=== PATIENT | male | born 1960 | race Caucasian/White ===

== ENCOUNTER 2020-01-18 06:45 | Day surgery (SDC) | payer MEDICAID ==
[~2020-01-18 06:45] MED LIST: Lidocaine 1% with EPINEPHrine 1:100,000 50 ML MDV ONE; Sodium Chloride 0.9% 10 ML ONE; Sodium Tetradecyl Sulfate 1% 20 MG/2 ML SDV ONE
[2020-01-18] MEDS ORDERED: Midazolam 1 MG/ML 2 ML SDV ONE ×2 (07:31→09:04)
[2020-01-18] MEDS ORDERED: Propofol 200 MG/20 ML SDV ONE ×3 (07:31→09:24)
[2020-01-18] MEDS ORDERED: fentaNYL 100 MCG/2 ML SDV ONE (07:31)
[2020-01-18] MEDS ORDERED: Sodium Chloride 0.9% 1,000 ML IV SCH (08:00)
[2020-01-18] MEDS: Lidocaine 1% w/EPINEPHrine 50 ML, Sodium Bicarbonate 5 MEQ in Sodium Chloride 0.9% 950 ML INJECT SCH ×2 (09:08→09:09)
[2020-01-18] MEDS ORDERED: Lidocaine 2% Jelly 30 ML Tube ONE (09:38)
--- NOTE | 2020-01-19 08:01 | OR ---
DATE OF PROCEDURE: SURGEON: Harvey Izaguirre MD PROCEDURES: 1. Radiofrequency ablation of left greater saphenous vein. 2. Radiofrequency ablation of right greater saphenous vein. 3. Sclerotherapy, left leg, multiple. 4. Sclerotherapy, right leg, multiple. 5. Compression wrap, left leg (03201). 6. Compression wrap, right leg (68308). COMPLICATIONS: None. BISQUE PLACER: None. ANESTHESIA: MAC/local. RISKS: Risks, benefits, alternatives, and limitations including, but not limited to infection, bleeding, DVT formation, chronic pain, chronic wounds, neuropathy, and other risks not listed here were explained to the patient, who wished to proceed. PROCEDURE IN DETAIL: The patient was placed in supine position. The left greater saphenous vein was identified first. This was accessed at the level of the ankle using a 21-gauge needle, then exchanged for a 35,000th wire, then exchanged for a 7-[place] sheath. The RFA probe was advanced to 3 cm from saphenofemoral junction. Tumescent fluid was injected in 1 cm jacket around this and verified a second and third time. Direct even pressure was held as the probe was deployed x2 proximally and distally and x1 in all other segments. Sheath and device were then removed. Direct pressure was held for 10 minutes and Dermabond was applied. The right leg was then performed in a same manner, same fashion, same sequence using the same equipment. The only difference on the right side would be the area underneath the ulcer was not ablated due to its superficial proximity with concern for thermal injury to the ulcer itself. Sclerotherapy was then performed in the left and right legs using 0.33% sodium tetradactyl and was always drawn back to ensure intravascular injection only. No more than 2 mL was injected in 1 location. There were 3 on the left, 3 on the right. Two-layer two-stage compression wrapping was performed in distal to proximal gradient. This was a [id number] confirmation in proximal to distal. The patient tolerated the procedure well. Harvey Izaguirre MD /[id number]
== END 2020-01-18 11:15 | disposition home or self-care (01) ==
LOC: JP.SDS 06:45
PROVIDERS: ATTEND Surgery
DX: I83.013 Varicose veins of right lower extremity with ulcer of ankle (principal); L97.319 Non-pressure chronic ulcer of right ankle with unspecified severity; I11.0 Hypertensive heart disease with heart failure; I25.10 Atherosclerotic heart disease of native coronary artery without angina pectoris; F32.9 Major depressive disorder, single episode, unspecified; I25.2 Old myocardial infarction; G47.33 Obstructive sleep apnea (adult) (pediatric); I50.9 Heart failure, unspecified; I25.5 Ischemic cardiomyopathy; Z88.8 Allergy status to other drugs, medicaments and biological substances; Z79.899 Other long term (current) drug therapy; Z86.73 Personal history of transient ischemic attack (TIA), and cerebral infarction without residual deficits; Z98.890 Other specified postprocedural states; Z79.82 Long term (current) use of aspirin
CPT/HCPCS: 36470; 36475; J1642; J2250; J2704; J3010; J7030; J3490